=== PATIENT | female | born 1965 | race Caucasian/White ===

== ENCOUNTER 2017-05-30 20:25 | Emergency (ER) | payer OTHER ==
[~2017-05-30] VITALS: Ht 175.2 cm; Wt 72.6 kg
[2017-05-30 20:25] VITALS: BP 134/76
[~2017-05-30 20:25] MED LIST: B12,B-12,B 12500 MC1 PO; DAYPRO600 M1 PO; DELTASONE20 MG PO; ELOCON 0.1% CRE15 GM; FLEXERIL5 MG PO; KEFLEX500 MG PO; MOTRIN800 MG PO; Motrin,Rufen800 MG PO; NAPROSYN500 MG PO; ROBAXIN750 MG PO; TRAMADOL HCL50 MG PO; VENTOLIN 02.5 MG/3 M INH; VICODIN 500 MG-1 TAB PO; ZITHROMAX Z-PA250 MG PO; ZOFRAN4 MG PO
== END 2017-05-30 22:37 | disposition home or self-care (01) ==
LOC: ED 20:25
DX: S13.9XXA Sprain of joints and ligaments of unspecified parts of neck, initial encounter (principal); R03.0 Elevated blood-pressure reading, without diagnosis of hypertension; V89.2XXA Person injured in unspecified motor-vehicle accident, traffic, initial encounter; Y93.89 Activity, other specified; Y92.413 State road as the place of occurrence of the external cause; Y99.9 Unspecified external cause status

== ENCOUNTER 2018-08-05 18:35 | Emergency (ER) | payer MEDICAID ==
[~2018-08-05] VITALS: Ht 165.1 cm; Wt 62.6 kg
[2018-08-05 20:06] LABS: BASO % 0.2 % (0.0-1.0); HEMATOCRIT 42.8 % (37.0-47.0); HEMOGLOBIN 14.2 g/dl (12.0-16.0); LYMPH # 1.5 10*3/uL (1.3-4.4); LYMPH % 12.3 % (27.0-41.0); MEAN CELL VOLUME 95.1 fl (81.0-99.0); MEAN CORPUSCULAR HGB 31.6 pg (27.0-31.0); MEAN CORPUSCULAR HGB CONC 33.2 g/dl (33.0-37.0); MEAN PLATELET VOLUME 10.6 fl (9.6-12.3); MONO # 0.1 10*3/uL (0.1-1.0); MONO % 1.1 % (3.0-9.0); NEUT # 10.8 10*3/uL (2.3-7.9); NEUT % 86.2 % (47.0-73.0); PLATELET COUNT AUTOMATED 276 10*3/uL (130-400); WHITE BLOOD COUNT 12.5 10*3/uL (4.8-10.8)
[2018-08-05 20:13] LABS: INTERNATIONAL NORM RATIO 0.9 (2.0-3.5)
[2018-08-05 20:20] LABS: ALBUMIN 3.6 gm/dl (3.1-4.5); ALKALINE PHOSPHATASE 74 U/L (45-117); BUN 6 mg/dl (7-24); CHLORIDE 110 mmol/L (98-107); CREATININE 0.67 mg/dL (0.55-1.02); POTASSIUM 4.3 mmol/L (3.5-5.1); SGOT/AST 7 IU/L (3-35); SGPT/ALT 16 U/L (12-78); SODIUM 143 mmol/L (136-145); TOTAL PROTEIN 7.4 gm/dL (6.4-8.2)
[2018-08-05 20:58] VITALS: BP 132/84
== END 2018-08-05 21:20 | disposition home or self-care (01) ==
LOC: ED 18:35
PROVIDERS: Physician Assistant
DX: Z48.01 Encounter for change or removal of surgical wound dressing (principal); F17.200 Nicotine dependence, unspecified, uncomplicated; Z98.890 Other specified postprocedural states; Z90.710 Acquired absence of both cervix and uterus

== ENCOUNTER 2024-04-06 06:54 | Emergency (ER) | payer SELFPAY ==
[~2024-04-06] VITALS: Ht 165.1 cm; Wt 59.0 kg
[2024-04-06 07:11] VITALS: BP 168/93
[2024-04-06] MEDS ORDERED: Ketorolac Tromethamine 15 MG/ML VIAL IV ONE (07:15)
[2024-04-06] MEDS ORDERED: Ketorolac Tromethamine 30 MG/ML VIAL IM ONE (07:35)
[2024-04-06] MEDS ORDERED: TRAMADOL HCL50 MG PO (08:49)
== END 2024-04-06 09:03 | disposition home or self-care (01) ==
LOC: ED 06:54
DX: S52.502A Unspecified fracture of the lower end of left radius, initial encounter for closed fracture (principal); Z90.711 Acquired absence of uterus with remaining cervical stump; W10.8XXA Fall (on) (from) other stairs and steps, initial encounter; Y93.89 Activity, other specified; Y92.89 Other specified places as the place of occurrence of the external cause; Y99.8 Other external cause status

== ENCOUNTER 2024-11-12 09:48 | Emergency (ER) | payer SELFPAY ==
[~2024-11-12] VITALS: Ht 165.1 cm; Wt 61.2 kg
[2024-11-12 09:56] VITALS: BP 137/78
[2024-11-12] MEDS ORDERED: SODIUM CHLORIDE 0.9% 1,000 ML IV ONE (10:00)
[2024-11-12] MEDS ORDERED: DIAZEPAM 10 MG/2 ML SYR IV ONE (10:05)
[2024-11-12 10:30] LABS: BASO # 0.1 10*3/uL (0.0-0.1); BASO % 0.6 % (0.0-1.0); EOS # 0.1 10*3/uL (0.0-0.4); EOS % 1.2 % (1.0-4.0); MEAN CELL VOLUME 97.1 fl (81.0-99.0); MEAN CORPUSCULAR HGB 31.3 pg (27.0-31.0); MEAN CORPUSCULAR HGB CONC 32.3 g/dl (33.0-37.0); MEAN PLATELET VOLUME 10.1 fl (9.6-12.3); MONO # 0.1 10*3/uL (0.1-1.0); MONO % 0.6 % (3.0-9.0); NEUT # 8.3 10*3/uL (2.3-7.9); NEUT % 81.7 % (47.0-73.0); PLATELET COUNT AUTOMATED 238 10*3/uL (130-400); RED BLOOD COUNT 4.53 10*6/uL (4.10-5.10); RED CELL DISTRI WIDTH 15.6 % (0-14.5); WHITE BLOOD COUNT 10.2 10*3/uL (4.8-10.8)
[2024-11-12 10:45] LABS: BUN 10 mg/dl (9-23); CHLORIDE 110 mmol/L (98-107); POTASSIUM 3.8 mmol/L (3.4-5.1)
== END 2024-11-12 11:34 | disposition home or self-care (01) ==
LOC: ED 09:48
PROVIDERS: Emergency Medicine
DX: R25.1 Tremor, unspecified (principal); R53.1 Weakness; Z87.442 Personal history of urinary calculi; Z90.710 Acquired absence of both cervix and uterus